=== PATIENT | female | born 1970 | race Caucasian/White ===

== ENCOUNTER 2020-07-19 15:11 | Outpatient (REF) | payer OTHER, SELFPAY ==
--- NOTE | 2020-07-19 | MM_ITS ---
EXAMINATION: MM SCREENING DIGITAL BREAST TOMOSYNTHESIS, BILATERAL CLINICAL INFORMATION: Screening. Asymptomatic. The lifetime risk of breast cancer based on the Tyrer-Cuzick Model is 12%. COMPARISON: Mammography: 07/14/2019, 06/07/2018, 12/11/2016 TECHNIQUE: Digital breast tomosynthesis is performed in both the craniocaudal and mediolateral oblique views along with computer-aided detection (CAD). Synthesized 2D images are generated from the tomosynthesis. FINDINGS: The breasts are heterogeneously dense, which may obscure small masses (ACR BI-RADS breast composition Category c). Parenchymal pattern is similar to prior studies. There is no interval significant mass or architectural abnormality or abnormal calcifications. Again, there are multiple bilateral round predominantly dermal calcifications. The axilla and skin contours are unremarkable. No significant changes. MM/MM tomosynthesis screening BI IMPRESSION: No significant changes from prior studies. ASSESSMENT: BI-RADS 2: Benign RECOMMENDATION: Routine annual mammography screening. This patient's information was entered into a reminder system with a target due date for their next mammogram.
== END 2020-07-19 15:12 | disposition home or self-care (01) ==
LOC: HO.MAMMO 15:11
PROVIDERS: PCP Internal Medicine; Visit Provider Internal Medicine
DX: Z12.31 Encounter for screening mammogram for malignant neoplasm of breast (principal)
CPT/HCPCS: 77063; 77067

== ENCOUNTER 2020-10-07 18:24 | Inpatient (IN) | payer OTHER, SELFPAY ==
--- NOTE | ~2020-10-07 | CT_ITS ---
EXAMINATION: CT ABDOMEN AND PELVIS WITHOUT CONTRAST CLINICAL INFORMATION: Vomiting, abdominal pain, multiple surgeries, rule out small bowel obstruction COMPARISON: 09/09/2007 TECHNIQUE: Oral contrast was administered. Multidetector volumetric imaging was performed from the superior aspect of the liver through the pubic symphysis. Sagittal and coronal reformatted images were obtained on the technologist's workstation. This CT examination was performed using dose optimization techniques as appropriate, variously including the following: *Automated exposure control *Adjustment of mA and/or kV according to patient size (this includes techniques or standardized protocols for targeted exams where dose is matched to indication/reason for exam; i.e. extremities or head) *Use of iterative reconstruction technique DLP: 524 mGy-cm FINDINGS: LUNG BASES: The visualized lung bases are unremarkable. LIVER, GALLBLADDER, AND BILIARY TREE: The liver is normal in size, shape, and attenuation. No focal hepatic lesion or biliary ductal dilatation is identified on this noncontrast exam. The gallbladder is unremarkable with no evidence of radiopaque gallstones, gallbladder wall thickening, or obvious pericholecystic inflammatory changes. PANCREAS: Unremarkable. SPLEEN: Unremarkable. ADRENAL GLANDS: Unremarkable. KIDNEYS AND URETERS: The kidneys are normal in size, shape, and attenuation. No hydronephrosis, hydroureter, or calculi seen. No perinephric stranding. BLADDER: Unremarkable. GASTROINTESTINAL TRACT: No evidence of bowel obstruction, and oral contrast is present within small and large bowel. Distal small bowel loops in the right lower quadrant are thickened leading to an enterocolonic anastomosis, suspicious for an enteritis. No free fluid or free air is seen. ABDOMINAL WALL: No significant hernia is appreciated. LYMPH NODES: Normal. VASCULAR: Unremarkable. PELVIC VISCERA: Unremarkable. OSSEOUS STRUCTURES: Unremarkable. CT/CT abdomen pelvis wo con IMPRESSION: Thick-walled distal small bowel loops in the right lower quadrant leading to an enterocolonic anastomosis, suspicious for an enteritis which may be infectious or inflammatory. No evidence of bowel obstruction.
[2020-10-07 18:31] VITALS: BP 119/91; PULSE 112; RESP 18; TEMP 37.1; O2SAT 98; BMI 24.7
[2020-10-07 21:26] LABS: MANUAL DIFF FLAG NO
[2020-10-07 21:28] LABS: Basophils Absolute Auto 0.1 X10*3/uL (0.0-0.2); Basophils Percent Auto 0.7 % (0-2); Eosinophils Absolute Auto 0.1 X10*3/uL (0.0-0.4); Eosinophils Percent Auto 1.9 % (0-4); Hematocrit 42.2 % (37-47); Hemoglobin 13.6 g/dl (12.0-16.0); Imm Gran Abs Auto 0.03 X10*3/uL (0.00-0.03); Imm Gran Pct Auto 0.4 % (0.0-0.4); Lymphocytes Percent Auto 15.3 % (20-40); Mean Corpuscular HGB Conc 32.2 g/dl (31.0-35.0); Mean Corpuscular Hemoglobin 26.4 pg (27.0-33.0); Mean Corpuscular Volume 81.9 fL (80-98); Mean Platelet Volume 9.6 fL (9.4-12.3); Monocytes Absolute Auto 0.6 X10*3/uL (0.1-1.2); Monocytes Percent Auto 9.5 % (2-11); Neutrophils Absolute Auto 4.9 X10*3/uL (2.0-8.3); Neutrophils Percent Auto 72.2 % (45-73); Platelet Count 307 X10*3/uL (160-400); Red Blood Count 5.15 X10*6/uL (4.20-5.50); Red Cell Distribution Width 12.3 % (11.0-16.0); White Blood Count 6.7 X10*3/uL (4.8-10.8)
[2020-10-07 21:53] LABS: Alanine Aminotransferase 28 U/L (0-31); Albumin Level 3.9 g/dL (3.5-5.0); Alkaline Phosphatase 245 U/L (39-117); Anion Gap 18 (12-20); Aspartate Amino Transferase 56 U/L (5-31); Bilirubin Direct 0.3 mg/dL (0.0-0.5); Bilirubin Total 0.5 mg/dL (0.0-1.0); Blood Urea Nitrogen 35 mg/dL (9-16); Calcium 8.9 mg/dL (8.4-10.2); Carbon Dioxide 27 mmol/L (22-29); Chloride 92 mmol/L (96-108); Creatinine Clr Calc Pharmacy 36.6; Estimated Glomerular Filt Rate 33; Glucose Random 82 mg/dL (60-115); Lipase 54 U/L (8-78); Potassium 3.8 mmol/L (3.3-5.1); Sodium 133 mmol/L (135-145); Total Protein 7.3 g/dL (6.5-8.0)
[2020-10-07 22:17] LABS: COVID-19 Test Negative (Negative)
--- NOTE | 2020-10-07 22:23 | PC.NURSE ---
DRE Dave at bedside for evaluation. Escorted to ED Bed 14 with staff. Ambulates with steady gait.
[2020-10-07 22:43] LABS: Glucose Urine UA NEG (NEG); Leukocyte Esterase Urine NEG (NEG); Nitrite Urine NEG (NEG); PH 5.5 (5.0-8.0); Urine Blood TRACE (NEG); Urine Ketones 5 MG/DL (NEG); Urine Protein NEG (NEG-TRACE)
[2020-10-07 22:44] LABS: Appearance Urine CLEAR; Color Urine YELLOW
--- NOTE | 2020-10-07 22:55 | ED_ITS ---
HPI - Nausea/Vomiting/Diarrhea General Chief complaint: Nausea/Vomiting/Diarrhea Stated complaint: MULTIPLE COMPLAINTS Time Seen by Provider: 10/07/20 22:05 Source: patient Mode of arrival: ambulatory Limitations: no limitations History of Present Illness HPI Narrative: 50-year-old female with past medical history of Crohn's status post partial resection, appendectomy here with complaints of abdominal pain. The patient tells me Wednesday evening she started to have right-sided abdominal discomfort and developed vomiting throughout the night. She tells me she had about 24 hours worth of vomiting with associated fever with a max temp of 104 degrees. Wednesday she was feeling improved with no additional vomiting episodes was still having some abdominal pain with low-grade fevers which has continued through today. The patient has chronic diarrhea normally 4 episodes per day. She has had 1-2 episodes per day since this started which is decreased per patient. Non-bloody diarrhea. No urinary symptoms, cough, shortness of breath. She is complaining of feeling generally weak and tired today with decreased p.o. intake Associated nausea: Yes Related Data Allergies Allergy/AdvReac Type Severity Reaction Status Date / Time kiwi [KIWI] Allergy Intermediate FACIAL Unverified 04/18/20 16:04 SWELLING TO LIPS dog dander [DOG] Allergy Mild HIVES TO Unverified 04/18/20 16:04 DOG SALIVA No Known Drug Allergies Allergy Unknown UNK Unverified 04/18/20 16:04 Review of Systems Review of Systems: Yes all other systems are reviewed and are negative Constitutional: Constitutional: Reports no additional constitutional complaints, Denies body ache(s), Denies chills, Reports fever(s), Denies headache(s) and Denies weakness Eyes: Eyes: Reports no additional eye complaints and Denies change in vision ENT: Reports system reviewed and no additional complaints, except as documented, Denies dizziness, Denies headache(s), Denies nasal congestion, Denies nasal discharge and Denies neck pain Cardiovascular: Cardiovascular: Reports no additional cardiovascular complaints, Denies chest pain, Denies leg edema and Denies dyspnea Respiratory: Respiratory: Reports no additional respiratory complaints, Denies cough and Denies dyspnea Gastrointestinal: Gastrointestinal: Reports no additional gastrointestinal complaints, Reports abdominal pain, Reports diarrhea, Reports nausea and Reports vomiting Genitourinary: Genitourinary: Reports no additional female genitourinary complaints and Denies urinary incontinence Musculoskeletal: Musculoskeletal: Reports no additional musculoskeletal complaints, Denies back pain, Denies arthralgias, Denies joint swelling, Denies neck pain, Denies numbness and Denies tingling Integumentary/Breasts: Skin/Breast: Reports system reviewed and no additional complaints, except as docu and Denies rash Neurologic: Reports system reviewed and no additional complaints, except as documented, Denies Abnormal speech present, Denies dizziness, Denies headache(s), Denies numbness, Denies tingling and Denies weakness PMFSH Past Medical History Attestation statement: The following information was validated with the patient. Source: old records reviewed and nursing notes reviewed Medical History (Updated 10/08/20 @ 01:37 by Dominga Dave NP) Crohn disease Surgical History (Updated 10/07/20 @ 22:56 by Dominga Dave NP) H/O partial resection of colon Hx of appendectomy Social History Social History Advance Directives: No Advance Directives Information Provided: Yes Physical Exam Vital Signs: Vital Signs: Last Vital Signs Temp 98.8 F 10/07/20 18:31 Pulse 112 H 10/07/20 18:31 Resp 18 10/07/20 18:31 BP 119/91 H 10/07/20 18:31 Pulse Ox 98 10/07/20 18:31 Body Mass Index 24.7 Const: General: cooperative, healthy appearing, comfortable and no acute distress Orientation/consciousness: patient oriented x3 Limitations: no limitations HENMT: Head: Yes normal to inspection Ears: hearing grossly normal bilaterally General nose exam: Normal external nose present Face and sinus: Yes normal facial exam Mouth: Normal oral and palatal mucosa present Throat: Yes posterior oropharynx normal Eyes: General: appearance normal, both eyes and all related structures Pupils: Equal, round and reactive pupils present Neck: Neck: Yes normal visual inspection Chest: Chest palpation & inspection: normal inspection of the chest Resp: Effort & Inspection: normal respiratory effort Auscultation: clear to auscultation bilaterally Cardio: Rate: regular rate Rhythm: regular rhythm Peripheral pulses: Peripheral pulses 2+ throughout GI: Inspection: Yes normal to inspection Palpation (GI): Soft to palpation and Tenderness to palpation present (GI) (mild tenderness in RLQ, no rebound or guarding ) Auscultation: normal bowel sounds Back/Spine/Pelvis: Thoracic/Lumbar Spine: thoracic and lumbar spine normal to inspection Skin: General skin exam: no rashes or lesions noted Neuro: General: patient oriented x3, no focal motor deficits and normal sensation to monofilament Cranial nerves: Yes Equal, round and reactive pupils present Cognition (Neuro): normal cognition Speech: No Abnormal speech present Gait exam (Neuro): Normal gait present Motor exam (neuro): 5/5 motor strength present throughout Extrem: General: Yes normal to inspection Course Course Course Narrative: 50-year-old female here with 3 days of right lower abdominal pain, vomiting and fever, now additionally with generalized weakness and de creased PO intake. Will need labs including blood cultures/lactic acid, UA, CT A/P . 0130-HALEIGH from dehydration. ?HUS with GI symptoms and double in creatinine however non reports of bloody diarrhea. NO fever here, no leukocytosis, lactic acid normal. CT shows thick-walled distal small bowel loops in the right lower quadrant leading to an enterocolonic anastomosis, suspicious for an enteritis which may be infectious or inflammatory. No evidence of bowel obstruction. At this time concern for viral gastroenteritis. Will admit for observation, trend of renal function. 0135-Discussed with Dr Newman who accepted admission. MDM - Nausea/Vomiting/Diarrhea MDM Narrative Medical decision making narrative: Viral syndrome, diverticulitis, bowel obstruction, ileus Medical Records Attestation: I reviewed the patient's medical records. Lab Data Attestation: I reviewed the patient's lab results. Result diagrams: 10/07/20 21:22 10/07/20 21:22 Labs: Lab Results 10/07/20 10/07/20 10/07/20 Range/Units 21:22 21:22 21:45 WBC 6.7 (4.8-10.8) X10*3/uL RBC 5.15 (4.20-5.50) X10*6/uL Hgb 13.6 (12.0-16.0) g/dl Hct 42.2 (37-47) % MCV 81.9 (80-98) fL MCH 26.4 L (27.0-33.0) pg MCHC 32.2 (31.0-35.0) g/dl RDW 12.3 (11.0-16.0) % Plt Count 307 (160-400) X10*3/uL MPV 9.6 (9.4-12.3) fL Immature Gran % (Auto) 0.4 (0.0-0.4) % Neut % (Auto) 72.2 (45-73) % Lymph % (Auto) 15.3 L (20-40) % [place] % (Auto) 9.5 (2-11) % Eos % (Auto) 1.9 (0-4) % Baso % (Auto) 0.7 (0-2) % Lymph # (Auto) 1.0 L (1.2-4.9) X10*3/uL [place] # (Auto) 0.6 (0.1-1.2) X10*3/uL Eos # (Auto) 0.1 (0.0-0.4) X10*3/uL Baso # (Auto) 0.1 (0.0-0.2) X10*3/uL Abs Immat Gran (auto) 0.03 (0.00-0.03) X10*3/uL Absolute Neuts (auto) 4.9 (2.0-8.3) X10*3/uL Absolute Nucleated RBC 0.000 (0.0-0.012) X10*3/uL Nucleated RBC % (auto) 0.0 (0.0-0.2) /100WBC Sodium 133 L (135-145) mmol/L Potassium 3.8 (3.3-5.1) mmol/L Chloride 92 L (96-108) mmol/L Carbon Dioxide 27 (22-29) mmol/L Anion Gap 18 (12-20) BUN 35 H (9-16) mg/dL Creatinine 1.65 H (0.5-1.4) mg/dL Estim Creat Clear Calc 36.6 Estimated GFR 33 Random Glucose 82 (60-115) mg/dL Lactic Acid (0.5-2.0) mmol/L Calcium 8.9 (8.4-10.2) mg/dL Total Bilirubin 0.5 (0.0-1.0) mg/dL Direct Bilirubin 0.3 (0.0-0.5) mg/dL AST 56 H (5-31) U/L ALT 28 (0-31) U/L Alkaline Phosphatase 245 H (39-117) U/L Total Protein 7.3 (6.5-8.0) g/dL Albumin 3.9 (3.5-5.0) g/dL Lipase 54 (8-78) U/L Urine Color Urine Appearance Urine pH (5.0-8.0) Ur Specific [place] (1.005-1.025) Urine Protein (NEG-TRACE) MG/DL Urine Glucose (UA) (NEG) MG/DL Urine Ketones (NEG) MG/DL Urine Blood (NEG) Urine Nitrite (NEG) Ur Leukocyte Esterase (NEG) Urine RBC (0) /HPF Urine WBC (0-4) /HPF Ur Squamous Epith Cells /LPF Ur Renal Epithelial Cell /LPF Urine Bacteria /LPF Epithelial Casts /LPF Urine Mucus /LPF COVID-19 ([facility]) Negative (Negative) COVID-19 Clin Com See Note 10/07/20 10/07/20 Range/Units 21:45 22:45 WBC (4.8-10.8) X10*3/uL RBC (4.20-5.50) X10*6/uL Hgb (12.0-16.0) g/dl Hct (37-47) % MCV (80-98) fL MCH (27.0-33.0) pg MCHC (31.0-35.0) g/dl RDW (11.0-16.0) % Plt Count (160-400) X10*3/uL MPV (9.4-12.3) fL Immature Gran % (Auto) (0.0-0.4) % Neut % (Auto) (45-73) % Lymph % (Auto) (20-40) % [place] % (Auto) (2-11) % Eos % (Auto) (0-4) % Baso % (Auto) (0-2) % Lymph # (Auto) (1.2-4.9) X10*3/uL [place] # (Auto) (0.1-1.2) X10*3/uL Eos # (Auto) (0.0-0.4) X10*3/uL Baso # (Auto) (0.0-0.2) X10*3/uL Abs Immat Gran (auto) (0.00-0.03) X10*3/uL Absolute Neuts (auto) (2.0-8.3) X10*3/uL Absolute Nucleated RBC (0.0-0.012) X10*3/uL Nucleated RBC % (auto) (0.0-0.2) /100WBC Sodium (135-145) mmol/L Potassium (3.3-5.1) mmol/L Chloride (96-108) mmol/L Carbon Dioxide (22-29) mmol/L Anion Gap (12-20) BUN (9-16) mg/dL Creatinine (0.5-1.4) mg/dL Estim Creat Clear Calc Estimated GFR Random Glucose (60-115) mg/dL Lactic Acid 0.8 (0.5-2.0) mmol/L Calcium (8.4-10.2) mg/dL Total Bilirubin (0.0-1.0) mg/dL Direct Bilirubin (0.0-0.5) mg/dL AST (5-31) U/L ALT (0-31) U/L Alkaline Phosphatase (39-117) U/L Total Protein (6.5-8.0) g/dL Albumin (3.5-5.0) g/dL Lipase (8-78) U/L Urine Color YELLOW Urine Appearance CLEAR Urine pH 5.5 (5.0-8.0) Ur Specific [place] 1.010 (1.005-1.025) Urine Protein NEG (NEG-TRACE) MG/DL Urine Glucose (UA) NEG (NEG) MG/DL Urine Ketones 5 (NEG) MG/DL Urine Blood TRACE (NEG) Urine Nitrite NEG (NEG) Ur Leukocyte Esterase NEG (NEG) Urine RBC 0-2 (0) /HPF Urine WBC 1-4 (0-4) /HPF Ur Squamous Epith Cells TRACE /LPF Ur Renal Epithelial Cell 2+ /LPF Urine Bacteria TRACE /LPF Epithelial Casts 5-9 /LPF Urine Mucus TRACE /LPF COVID-19 ([facility]) (Negative) COVID-19 Clin Com Imaging Data CT scan - abdomen: Attestation: I personally reviewed and interpreted this imaging study as daljit abraham: Radiologist's impression: Thick-walled distal small bowel loops in the right lower quadrant leading to an enterocolonic anastomosis, suspicious for an enteritis which may be infectious or inflammatory. No evidence of bowel obstruction Discharge Plan Discharge Clinical Impression: HALEIGH (acute kidney injury), Gastroenteritis and colitis, viral Patient Disposition: Admitted As Inpatient
[2020-10-07 22:56] LABS: Bacteria Urine TRACE /LPF; Mucus Urine TRACE /LPF; RBC Urine 0-2 /HPF (0); Renal Epithelial Cells Urine 2+ /LPF; Squamous Epithelial Cell Urine TRACE /LPF
[2020-10-07 23:08] LABS: Lactic Acid 0.8 mmol/L (0.5-2.0)
[2020-10-07] MEDS: 0.9 % Sodium Chloride 2,000 ML 999 ML IV (23:55)
[2020-10-08] MEDS: Diatrizoate Meglumine, Sodium 30 ML SOLUTION PO (00:57)
--- NOTE | 2020-10-08 02:31 | P.HPHOSP_ITS ---
History of Present Illness Date of Service: 10/08/20 Chief Complaint: Abdominal pain, fever This is a 50-year-old female with past medical history of Crohn's disease status post small-bowel resection who presents to the hospital with complaints of fever as well as abdominal pain and nausea vomiting that started on Wednesday. Patient reports that she had right lower quadrant abdominal pain that started on Wednesday, 8/10, nonradiating, associated with fever highest of 104 on Wednesday, nausea and vomiting with no diarrhea. Patient reports that her nausea and vomiting as well as abdominal pain have resolved somewhat but she still had fever persistently up until today and that is what brought her to the hospital. Due to this abdominal pain and nausea and vomiting she has not had a lot of oral intake. She denies any chest pain, no change in vision, no shortness of breath, no cough, no urinary symptoms and no lower extremity edema. No weakness in any of her extremities. She had bowel obstruction over 12 years ago for her Crohn's disease but had a flare about a year ago. She currently has no diarrhea. On arrival to the ED hemodynamically stable with a temp of 98.8?, heart rate of 112, respiratory rate of 18, blood pressure 119/91, satting 98% on room air Labs are significant for WBC count of 6.7, sodium of 133, chloride of 92, potassium 3.8, BUN of 35, creatinine of 1.65 with a baseline of 0.88, negative urine. Negative COVID, abdominal CT shows thick-walled distal bowel loops in the right lower quadrant leading to an enterocolonic anastomosis suspicious for an enteritis which may be infectious versus inflammatory. No evidence of bowel obstruction. Past medical history as below and confirmed with patient Review of Systems Review of Systems: Yes all other systems are reviewed and are negative [facility] Medical History (Updated 10/08/20 @ 02:44 by Delonte Newman MD) Crohn disease Hypertension Pertinent family history: Significant for coronary artery disease in brother, atrial fibrillation hypertension father Surgical History H/O partial resection of colon Hx of appendectomy Social History (Updated 10/08/20 @ 02:45 by Delonte Newman MD) Smoking Status: Never smoker Use of substances other than those prescribed or required for medical reasons: No Advance Directives: No Advance Directives Information Provided: Yes Meds Allergies Allergy/AdvReac Type Severity Reaction Status Date / Time kiwi [KIWI] Allergy Intermediate FACIAL Verified 10/08/20 02:29 SWELLING TO LIPS dog dander [DOG] Allergy Mild HIVES TO Verified 10/08/20 02:29 DOG SALIVA Active Medications: Current Medications Generic Name Dose Route Start Last Admin Trade Name Freq PRN Reason Stop Dose Admin Pharmacy Consult 1 each 10/08/20 01:31 Consult Rx Perform Med Rec MISCELLANE ONCE PRN Consult order Physical Exam Vital Signs and Narrative: Vital Signs: Last Vital Signs Temp 98.8 F 10/07/20 18:31 Pulse 112 H 10/07/20 18:31 Resp 18 10/07/20 18:31 BP 119/91 H 10/07/20 18:31 Pulse Ox 98 10/07/20 18:31 Body Mass Index 24.7 Const: General: cooperative and no acute distress Orientation/consciousness: patient oriented x3 Eyes: General: appearance normal, both eyes and all related structures Resp: Effort & Inspection: normal respiratory effort and able to speak in complete sentences Cardio: Rate: regular rate Rhythm: regular rhythm GI: Other: Mildly tender in the right lower quadrant with no rebound or guarding Palpation (GI): Soft to palpation Auscultation: normal bowel sounds Skin: General skin exam: no rashes or lesions noted Neuro: General: patient oriented x3 Cognition (Neuro): normal cognition Extrem: General: Yes normal to inspection and Yes no pedal edema Results Labs CBC and Chem 7: 10/07/20 21:22 10/07/20 21:22 Labs: Laboratory Results - last 24 hr 10/07/20 10/07/20 10/07/20 21:22 21:22 21:45 MCV 81.9 MCH 26.4 L MCHC 32.2 RDW 12.3 Plt Count 307 MPV 9.6 Immature Gran % (Auto) 0.4 Neut % (Auto) 72.2 Lymph % (Auto) 15.3 L [place] % (Auto) 9.5 Eos % (Auto) 1.9 Baso % (Auto) 0.7 Lymph # (Auto) 1.0 L [place] # (Auto) 0.6 Eos # (Auto) 0.1 Baso # (Auto) 0.1 Abs Immat Gran (auto) 0.03 Absolute Neuts (auto) 4.9 Absolute Nucleated RBC 0.000 Nucleated RBC % (auto) 0.0 Anion Gap 18 Estim Creat Clear Calc 36.6 Estimated GFR 33 Random Glucose 82 Lactic Acid Calcium 8.9 Total Bilirubin 0.5 Direct Bilirubin 0.3 AST 56 H ALT 28 Alkaline Phosphatase 245 H Total Protein 7.3 Albumin 3.9 Lipase 54 Urine Color Urine Appearance Urine pH Ur Specific [place] Urine Protein Urine Glucose (UA) Urine Ketones Urine Blood Urine Nitrite Ur Leukocyte Esterase Urine RBC Urine WBC Ur Squamous Epith Cells Ur Renal Epithelial Cell Urine Bacteria Epithelial Casts Urine Mucus COVID-19 ([facility]) Negative COVID-19 Clin Com See Note 10/07/20 10/07/20 21:45 22:45 MCV MCH MCHC RDW Plt Count MPV Immature Gran % (Auto) Neut % (Auto) Lymph % (Auto) [place] % (Auto) Eos % (Auto) Baso % (Auto) Lymph # (Auto) [place] # (Auto) Eos # (Auto) Baso # (Auto) Abs Immat Gran (auto) Absolute Neuts (auto) Absolute Nucleated RBC Nucleated RBC % (auto) Anion Gap Estim Creat Clear Calc Estimated GFR Random Glucose Lactic Acid 0.8 Calcium Total Bilirubin Direct Bilirubin AST ALT Alkaline Phosphatase Total Protein Albumin Lipase Urine Color YELLOW Urine Appearance CLEAR Urine pH 5.5 Ur Specific [place] 1.010 Urine Protein NEG Urine Glucose (UA) NEG Urine Ketones 5 Urine Blood TRACE Urine Nitrite NEG Ur Leukocyte Esterase NEG Urine RBC 0-2 Urine WBC 1-4 Ur Squamous Epith Cells TRACE Ur Renal Epithelial Cell 2+ Urine Bacteria TRACE Epithelial Casts 5-9 Urine Mucus TRACE COVID-19 ([facility]) COVID-19 Clin Com Imaging Radiologist's Impressions: Impressions Abdomen/Pelvis CT 10/08/20 00:15 IMPRESSION: Thick-walled distal small bowel loops in the right lower quadrant leading to an enterocolonic anastomosis, suspicious for an enteritis which may be infectious or inflammatory. No evidence of bowel obstruction. Assessment and Plan (1) HALEIGH (acute kidney injury): Status: Acute (2) Gastroenteritis and colitis, viral: Status: Acute This is a 50-year-old female with history of Crohn's disease presents to the hospital with abdominal pain, fever found to have enteritis on CT abdomen # fever - most likely secondary to enteritis - viral versus bacterial - given her fever, tachycardia, will start her on IV antibiotics - no evidence of HUS. as platelets within normal and her HALEIGH is most likely seco ndary to poor oral intake - follow cultures # HALEIGH - most likely secondary to poor oral intake - start IV fluids - follow BMP # hypertension - stable DVT prophylaxis: Lovenox
[2020-10-08 03:02] VITALS: BP 116/73; PULSE 88; RESP 16; TEMP 37.3; O2SAT 97
[2020-10-08 03:03] LABS: Anion Gap 12 (12-20); Carbon Dioxide 28 mmol/L (22-29); Chloride 99 mmol/L (96-108); Potassium 3.6 mmol/L (3.3-5.1); Sodium 135 mmol/L (135-145)
[2020-10-08 03:04] LABS: Blood Urea Nitrogen 27 mg/dL (9-16); Calcium 7.7 mg/dL (8.4-10.2); Creatinine Clr Calc Pharmacy 53.4; Estimated Glomerular Filt Rate 51; Glucose Random 81 mg/dL (60-115)
--- NOTE | 2020-10-08 06:26 | PC.NURSE ---
This RN contacted Med/Surg unit to give RN to RN report. No answer. quality assurance nurse (Светлана) and Nursing Anatomy And Physiology Instructor ([place]) aware. Plan to re-attempt giving report shortly. Plan to admit to room 350.
--- NOTE | 2020-10-08 06:37 | PC.NURSE ---
RN to RN report given to ALEXUS Moura on med/surg. Preparing for transfer/admission to room 350.
[2020-10-08 07:15] VITALS: BP 118/72; PULSE 86; RESP 16; TEMP 36.3; O2SAT 98
[2020-10-08] MEDS: Enoxaparin Sodium 40 MG/0.4 ML SYRINGE SUBCUT (07:51)
[2020-10-08] MEDS: levoFLOXacin/D5W 750 MG/150 ML PIGGYBACK 100 MG IV (07:51)
[2020-10-08] MEDS: 0.9 % Sodium Chloride 1,000 ML 100 ML IVCONT ×2 (07:51→19:58)
--- NOTE | 2020-10-08 09:01 | HO.PM.IMPN ---
Subjective Subjective Date of Service: 10/08/20 Interval History: seen and examined this AM reports abdominal symptoms improved, no further vomiting and nausea improved, no BM since admission, passing flatus ROS General - no fevers or chills Cardiovascular - no chest pain Respiratory - no shortness of breath or cough Abdominal- +n, - vomiting, - diarrhea Physical Exam Vital Signs: Vital Signs: Last Vital Signs Temp 97.3 F 10/08/20 07:15 Pulse 86 10/08/20 07:15 Resp 16 10/08/20 07:15 BP 118/72 10/08/20 07:15 Pulse Ox 98 10/08/20 07:15 Body Mass Index 24.7 Const: General: cooperative and no acute distress Orientation/consciousness: patient oriented x3 Eyes: General: appearance normal, both eyes and all related structures Resp: Effort & Inspection: normal respiratory effort and able to speak in complete sentences Cardio: Rate: regular rate Rhythm: regular rhythm GI: Other: Mildly tender in the right lower quadrant with no rebound or guarding Palpation (GI): Soft to palpation Auscultation: normal bowel sounds Skin: General skin exam: no rashes or lesions noted Neuro: General: patient oriented x3 Cognition (Neuro): normal cognition Extrem: General: Yes normal to inspection and Yes no pedal edema Objective Data Current Medications Generic Name Dose Route Start Last Admin Trade Name Freq PRN Reason Stop Dose Admin Acetaminophen 650 mg 10/08/20 07:13 Acetaminophen 325 Mg Tablet PO Q6H PRN Pain, Mild (Pain Scale 1-3) Enoxaparin Sodium 40 mg 10/08/20 08:00 10/08/20 07:51 Enoxaparin Sodium 40 Mg/0.4 Ml Syringe SUBCUT 40 mg Q24H COURTNEY Administration Sodium Chloride 1,000 mls @ 100 mls/hr 10/08/20 07:13 10/08/20 07:51 Ns IVCONT 100 mls/hr .Q10H COURTNEY Administration Levofloxacin 750 mg in 150 mls @ 100 mls/hr 10/08/20 08:00 10/08/20 07:51 Levaquin IV 100 mls/hr Q24H COURTNEY Administration Ondansetron HCl 4 mg 10/08/20 07:13 Ondansetron Hcl 4 Mg/2 Ml Vial IVPUSH Q8H PRN Nausea and Vomiting Pharmacy Consult 1 each 10/08/20 01:31 Consult Rx Perform Med Rec MISCELLANE ONCE PRN Consult order Sodium Chloride 3 ml 10/08/20 08:00 10/08/20 07:54 0.9 % Sodium Chloride Flush 3 Ml Syringe IVFLUSH Not Given QSHIFT [facility] Labs CBC & Chem 7: 10/07/20 21:22 10/08/20 02:37 Assessment and Plan (1) HALEIGH (acute kidney injury): Status: Acute (2) Gastroenteritis and colitis, viral: Status: Acute Assessment and Plan: This is a 50-year-old female with history of Crohn's disease presents to the hospital with abdominal pain, fever found to have enteritis on CT abdomen 1. Enteritis vs crohn's flare continue empiric Levaquin for now - day 2 stool studies if further diarrhea consult GI, hold off in steroids until evaluated start clear liquid diet 2. HALEIGH SCr baseline around .9, presented with 1.65 secondary to diarrhea and poor oral intake improving towards baseline, SCr down to 1.13 now continue IV hydration until diet improved 3. History of crohn's disease per patient report doesn't appear to be on any baseline meds GI evaluation as above DVT ppx - Lovenox Full Code Dispo: anticipate home without services once symptoms improved -- anticipate next 24-48 hours.
[2020-10-08 11:34] VITALS: BP 127/73; PULSE 89; RESP 16; TEMP 36.8; O2SAT 100
--- NOTE | 2020-10-08 12:23 | P.CNGI_ITS ---
History of Present Illness Data of Consult Service Date: 10/08/20 Primary Care Provider: Peterson Salinas MD HPI Reason for consult: Fever, abdominal pain, Hx of Crohn's disease 50 yo female who came to the ER with abdominal pain, hx of high fevers to 104 and diarrhea. Patient has had chronic diarrhea ever since her surgery in 2007 for small bowel disease with mesenteric abscess that ended up with emergent resection of diseased bowel. (Histologically, it was Crohn's disease with stricture and fistula into a mesenteric abscess.) Patient was seen about 1 year ago but was without followup. Review of Systems Review of Systems: Yes all other systems are reviewed and are negative Cardiovascular: Cardiovascular: Denies chest pain, Denies chest pain with activity, Denies palpitations and Reports dyspnea Respiratory: Respiratory: Denies cough, Reports dyspnea and Denies wheezing Gastrointestinal: Gastrointestinal: Reports tenesmus, Denies constipation, Reports GI cramping and Reports diarrhea Genitourinary: Genitourinary: Reports amenorrhea Comments: Patient is now post menopausal by hx Psychiatric: Psychiatric: Denies depression and Denies irritability Endocrine: Endocrine: Denies palpitations Allergic/Immunologic: Allergic/Immunologic: Denies wheezing PMFSH Past Medical History Medical History (Updated 10/08/20 @ 12:31 by Coleen See MD) Crohn disease Hypertension Cognitive capacity: full Functional capacity: independent ambulation Surgical History Surgical History (Updated 10/08/20 @ 12:25 by Coleen See MD) H/O partial resection of colon Hx of appendectomy Social History Social History (Updated 10/08/20 @ 02:45 by Delonte Newman MD) Household Members: Family and Children Housing: House Do you presently have visiting nurse or other home services: No Alcohol intake: never Smoking Status: Never smoker Smoked in Last 30 Days: No Use of substances other than those prescribed or required for medical reasons: No Have you been hit, kicked, punched, or otherwise hurt by someone within the past year? If so, by whom?: No Do you feel safe in your current relationship?: Yes Is there a partner from a previous relationship who is making you feel unsafe now?: No Are you made to feel afraid or neglected: No Advance Directives: No Advance Directives Information Provided: Yes Do you have thoughts of harming others: None Do you have a plan to hurt others: No Plan Recently lost weight without trying: No service: No Current occupational status: employed Travel History History of recent travel: No Meds Allergies Allergy/AdvReac Type Severity Reaction Status Date / Time kiwi [KIWI] Allergy Intermediate FACIAL Verified 10/08/20 06:25 SWELLING TO LIPS dog dander [DOG] Allergy Mild HIVES TO Verified 10/08/20 06:25 DOG SALIVA Active Medications: Current Medications Generic Name Dose Route Start Last Admin Trade Name Freq PRN Reason Stop Dose Admin Acetaminophen 650 mg 10/08/20 07:13 Acetaminophen 325 Mg Tablet PO Q6H PRN Pain, Mild (Pain Scale 1-3) Enoxaparin Sodium 40 mg 10/08/20 08:00 10/08/20 07:51 Enoxaparin Sodium 40 Mg/0.4 Ml Syringe SUBCUT 40 mg Q24H COURTNEY Administration Sodium Chloride 1,000 mls @ 100 mls/hr 10/08/20 07:13 10/08/20 07:51 Ns IVCONT 100 mls/hr .Q10H COURTNEY Administration Levofloxacin 750 mg in 150 mls @ 100 mls/hr 10/08/20 08:00 10/08/20 09:35 Levaquin IV Infused Q24H COURTNEY Infusion Ondansetron HCl 4 mg 10/08/20 07:13 Ondansetron Hcl 4 Mg/2 Ml Vial IVPUSH Q8H PRN Nausea and Vomiting Pharmacy Consult 1 each 10/08/20 01:31 Consult Rx Perform Med Rec MISCELLANE ONCE PRN Consult order Sodium Chloride 3 ml 10/08/20 08:00 10/08/20 07:54 0.9 % Sodium Chloride Flush 3 Ml Syringe IVFLUSH Not Given QSHIFT [facility] Home Medications Medication Instructions Recorded Confirmed Last Taken Type acetaminophen [Tylenol 8 Hour] 650 mg PO Q12H PRN 10/08/20 10/08/20 10/07/20 History ibuprofen [Advil] 200 mg PO Q6H PRN 10/08/20 10/08/20 10/07/20 History Physical Exam Vital Signs: Vital Signs: Last Vital Signs Temp 98.3 F 10/08/20 11:34 Pulse 89 10/08/20 11:34 Resp 16 10/08/20 11:34 BP 127/73 10/08/20 11:34 Pulse Ox 100 10/08/20 11:34 Body Mass Index 24.7 Const: General: cooperative, comfortable and no acute distress Or ientation/consciousness: patient oriented x3 Resp: Effort & Inspection: normal respiratory effort, able to speak in complete sentences, no respiratory distress and not tachypneic Auscultation: clear to auscultation bilaterally GI: Palpation (GI): Soft to palpation, nontender and no masses Skin: General skin exam: no rashes or lesions noted, no jaundice and normal turgor Lesions: no lesions Neuro: General: patient oriented x3 Extrem: General: Yes normal to inspection and No pedal edema Results Labs CBC & Chem 7: 10/07/20 21:22 10/08/20 02:37 Labs: Short CBC 10/07/20 Range/Units 21:22 WBC 6.7 (4.8-10.8) X10*3/uL Hgb 13.6 (12.0-16.0) g/dl Hct 42.2 (37-47) % Plt Count 307 (160-400) X10*3/uL BMP 10/07/20 10/08/20 21:22 02:37 Sodium 133 L 135 Potassium 3.8 3.6 Chloride 92 L 99 Carbon Dioxide 27 28 BUN 35 H 27 H Creatinine 1.65 H 1.13 Calcium 8.9 7.7 L D Liver Function 10/07/20 Range/Units 21:22 Total Bilirubin 0.5 (0.0-1.0) mg/dL Direct Bilirubin 0.3 (0.0-0.5) mg/dL AST 56 H (5-31) U/L ALT 28 (0-31) U/L Alkaline Phosphatase 245 H (39-117) U/L Albumin 3.9 (3.5-5.0) g/dL Urine 10/07/20 Range/Units 21:45 Urine Color YELLOW Urine Appearance CLEAR Urine pH 5.5 (5.0-8.0) Ur Specific Page 1.010 (1.005-1.025) Urine Protein NEG (NEG-TRACE) MG/DL Urine Glucose (UA) NEG (NEG) MG/DL CT done in the ER: GASTROINTESTINAL TRACT: No evidence of bowel obstruction, and oral contrast is present within small and large bowel. Distal small bowel loops in the right lower quadrant are thickened leading to an enterocolonic anastomosis, suspicious for an enteritis. No free fluid or free air is seen. Assessment and Plan (1) Crohn disease: Status: Acute Patient has not been shown to have active or recurrent Crohn's disease @ least up until now. Will continue to evaluate. (2) Gastroenteritis and colitis, viral: Status: Acute By the time patient had come in, the high fevers had stopped. The CT suggested a possible acute enteritis.. Covid Testing was negative. When seen a year ago, the bx done on colonoscopy showed some acute inflamation--no chronic disease was appreciated @ that time. She had been her usual self until Last Wednesday --10/04: She did not have her usual amount of of diarrhea. She had pain and fever. Will check CRP. See how she tolerates diet. Consider further testing depending on persistence of symptoms. Try to advance diet.
--- NOTE | 2020-10-08 13:25 | MHC.CM.PN ---
EMR REVIEWED, PT ADMITTED W/ENTEROCOLITIS AND HALEIGH, CM MET WITH PT WHO IS ALERT AND ORIENTED X 4, PT REPORTS SHE LIVES WITH HER SON AND DAUGHTER, PT IS INDEPENDENT WITH ALL CARE, HAS NO DME OR HOME SERVICES, PT DOES NOT ANTICIPATE NEED FOR SERVICES AFTER D/C, PT VERIFIED PC, PHARMACY AND DENIES HAVING A HCP, PT IS INTERESTED AND CM WILL COMPLETE WITH PT PRIOR TO D/C. PCP: [facility]VA DISCHARGE PLAN: HOME W/NO SERVICES, WILL TRANSPORT SELF.
[2020-10-08 14:19] LABS: C Reactive Protein 10.94 mg/dL (< or = 0.50)
[2020-10-08 15:10] VITALS: BP 134/86; PULSE 80; RESP 14; TEMP 36.7; O2SAT 99
[2020-10-08 19:16] VITALS: BP 137/79; PULSE 88; RESP 14; TEMP 36.4; O2SAT 98
[2020-10-08 21:38] LABS: Lactate Dehydrogenase 165 U/L (122-220)
[2020-10-08 23:23] VITALS: BP 127/83; PULSE 76; RESP 16; TEMP 36.1; O2SAT 98
[2020-10-09 04:00] VITALS: BP 105/66; PULSE 71; RESP 18; TEMP 36; O2SAT 100
[2020-10-09] MEDS: 0.9 % Sodium Chloride 1,000 ML 100 ML IVCONT (06:03)
[2020-10-09 06:13] LABS: MANUAL DIFF FLAG NO
[2020-10-09 06:28] LABS: Basophils Percent Auto 0.7 % (0-2); Eosinophils Absolute Auto 0.2 X10*3/uL (0.0-0.4); Eosinophils Percent Auto 3.7 % (0-4); Hematocrit 35.5 % (37-47); Hemoglobin 11.1 g/dl (12.0-16.0); Imm Gran Abs Auto 0.01 X10*3/uL (0.00-0.03); Imm Gran Pct Auto 0.2 % (0.0-0.4); Lymphocytes Absolute Auto 0.9 X10*3/uL (1.2-4.9); Lymphocytes Percent Auto 20.3 % (20-40); Mean Corpuscular HGB Conc 31.3 g/dl (31.0-35.0); Mean Corpuscular Hemoglobin 26.2 pg (27.0-33.0); Mean Corpuscular Volume 83.9 fL (80-98); Mean Platelet Volume 9.5 fL (9.4-12.3); Monocytes Absolute Auto 0.7 X10*3/uL (0.1-1.2); Monocytes Percent Auto 15.3 % (2-11); Neutrophils Absolute Auto 2.8 X10*3/uL (2.0-8.3); Neutrophils Percent Auto 59.8 % (45-73); Platelet Count 251 X10*3/uL (160-400); Red Blood Count 4.23 X10*6/uL (4.20-5.50); White Blood Count 4.6 X10*3/uL (4.8-10.8)
[2020-10-09 07:04] LABS: Anion Gap 11 (12-20); Blood Urea Nitrogen 8 mg/dL (9-16); Calcium 7.9 mg/dL (8.4-10.2); Carbon Dioxide 31 mmol/L (22-29); Chloride 102 mmol/L (96-108); Creatinine Clr Calc Pharmacy 74.5; Estimated Glomerular Filt Rate > 60; Glucose Random 82 mg/dL (60-115); Potassium 3.8 mmol/L (3.3-5.1); Sodium 140 mmol/L (135-145)
[2020-10-09 07:20] VITALS: BP 127/88; PULSE 83; RESP 16; TEMP 36.8; O2SAT 100
[2020-10-09] MEDS: levoFLOXacin/D5W 750 MG/150 ML PIGGYBACK 100 MG IV (08:39)
[2020-10-09] MEDS: 0.9 % Sodium Chloride Flush 3 ML SYRINGE IVFLUSH (08:39)
[2020-10-09] MEDS: Enoxaparin Sodium 40 MG/0.4 ML SYRINGE SUBCUT (08:45)
--- NOTE | 2020-10-09 09:17 | MHC.CM.PN ---
CM MET WITH PT TO COMPLETE HCP, PT DESIGNATED HER DAUGHTER DANIEL ARMENDARIZ HER HEALTH CARE AGENT, NO ALTERNATE CHOSEN. PT GIVEN ORIGINAL AND 3 COPIES, COPY UPLOADED TO [employer] AND PLACED IN CHART. DANIEL ARMENADRIZ [phone]
--- NOTE | 2020-10-09 10:56 | MHC.CM.PN ---
Addendum entered by Shelly Dietrich RN 10/09/20 11:03: CLARIFICATION PT TRANSPORTING SELF, CAR IN HOSPITAL PARKING LOT. Original Note: PT DISCHARGING TODAY HOME SELF-CARE, FAMILY TO TRANSPORT. PT DISCHARGING ON ABX LEOFLOXACIN 500MG AND HAS THREE MORE DOSES TO TAKE. NURSING AND HOSPITALIST AWARE OF PT'S DISPOSITION.
--- NOTE | 2020-10-09 10:58 | P.DS_ITS ---
DS: Providers Provider Date of Service: 10/09/20 Date of admission: 10/08/20 01:56 Primary care physician: Peterson Salinas MD Consults: 10/08/20 09:02 Consult to Gastroenterology Routine Consulting Provider: Coleen See Reason for consultation: enterocoliits - ? crohns flare vs infectious DS: Diagnosis Discharge Diagnosis (1) Crohn disease: Status: Acute (2) Gastroenteritis and colitis, viral: Status: Acute (3) HALEIGH (acute kidney injury): Status: Acute DS: Medications Discharge Medications Home Medications: Home Medications Medication Instructions Recorded Confirmed acetaminophen [Tylenol 8 Hour] 650 mg PO Q12H PRN 10/08/20 10/08/20 ibuprofen [Advil] 200 mg PO Q6H PRN 10/08/20 10/08/20 DS: Summary Hospital Course Hospital Course: From H&P: This is a 50-year-old female with past medical history of Crohn's disease status post small-bowel resection who presents to the hospital with complaints of fever as well as abdominal pain and nausea vomiting that started on Wednesday. Patient reports that she had right lower quadrant abdominal pain that started on Wednesday, 03/11, nonradiating, associated with fever highest of 104 on Wednesday, nausea and vomiting with no diarrhea. Patient reports that her nausea and vomiting as well as abdominal pain have resolved somewhat but she still had fever persistently up until today and that is what brought her to the hospital. Due to this abdominal pain and nausea and vomiting she has not had a lot of oral intake. She denies any chest pain, no change in vision, no shortness of breath, no cough, no urinary symptoms and no lower extremity edema. No weakness in any of her extremities. She had bowel obstruction over 12 years ago for her Crohn's disease but had a flare about a year ago. She currently has no diarrhea. Patient was admitted to medical/surgical floor with a working diagnosis of enteritis. She was treated with IV fluid, IV levofloxacin. Her abdominal pain, nausea and vomiting resolved. She had no fever during hospitalization. She was seen consultation by GI and no further workup is recommended at this time. Her diet was advanced and she is currently stable for discharge. She will be discharged home with oral Levofloxacin. She can follow up with GI as an outpatient. Status at Discharge Functional status at discharge: independent ambulation Time Spent with Patient Time attestation: Total time spent providing and/or coordinating discharge services: Discharge coordination time: Greater than 30 minutes Physical Exam Vital Signs: Vital Signs: Last Vital Signs Temp 98.2 F 10/09/20 07:20 Pulse 83 10/09/20 07:20 Resp 16 10/09/20 07:20 BP 127/88 10/09/20 07:20 Pulse Ox 100 10/09/20 07:20 Body Mass Index 24.7 Const: Nutritional Appearance: well nourished Orientation/consciousness: patient oriented x3 HENMT: Head: Yes normocephalic and Yes atraumatic Eyes: Sclerae: sclerae normal Chest: Chest palpation & inspection: normal inspection of the chest Resp: Effort & Inspection: normal respiratory effort and no respiratory distress Cardio: Rate: regular rate Rhythm: regular rhythm GI: Palpation (GI): Soft to palpation and nontender Skin: General skin exam: no rashes or lesions noted Neuro: General: patient oriented x3 Cranial nerves: Yes CN's II-XII intact bilaterally and Yes Bilaterally intact EOM present Extrem: General: Yes normal to inspection DS: Data Data Completed and Pending Labs on day of discharge: Laboratory Results - last 24 hr 10/08/20 10/09/20 10/09/20 02:37 06:05 06:05 WBC 4.6 L RBC 4.23 Hgb 11.1 L Hct 35.5 L MCV 83.9 MCH 26.2 L MCHC 31.3 RDW 12.0 Plt Count 251 MPV 9.5 Immature Gran % (Auto) 0.2 Neut % (Auto) 59.8 Lymph % (Auto) 20.3 Turner % (Auto) 15.3 H Eos % (Auto) 3.7 Baso % (Auto) 0.7 Lymph # (Auto) 0.9 L Turner # (Auto) 0.7 Eos # (Auto) 0.2 Baso # (Auto) 0.0 Abs Immat Gran (auto) 0.01 Absolute Neuts (auto) 2.8 Absolute Nucleated RBC 0.000 Nucleated RBC % (auto) 0.0 Sodium 140 Potassium 3.8 Chloride 102 Carbon Dioxide 31 H Anion Gap 11 L BUN 8 L D Creatinine 0.81 Estim Creat Clear Calc 74.5 Estimated GFR > 60 Random Glucose 82 Calcium 7.9 L Lactate Dehydrogenase 165 C-Reactive Protein 10.94 H Preliminary micro results at discharge 10/07/20 22:45 Blood Culture - Preliminary Blood - Venous No growth after 24 hours. 10/07/20 22:45 Blood Culture - Preliminary Blood - Venous No growth after 24 hours. Discharge Plan Discharge Patient Disposition: Home, Self-Care Referrals: Peterson Salinas MD [Primary Care Provider] - Discharge Medications: New levofloxacin 500 mg tablet 500 mg PO DAILY Qty: 3 RF: 0 Continued acetaminophen [Tylenol 8 Hour] 650 mg Tablet Extended Release 650 mg PO Q12H PRN (Reason: Pain) RF: 0 ibuprofen [Advil] 200 mg Tablet 200 mg PO Q6H PRN (Reason: Pain) RF: 0 Discharge Orders: Discharge Order (Routine); Ordered 10/09/20 Ordered By: Shonna Hinojosa Activity on Discharge: As tolerated Stand Alone Forms: Patient Portal Discharge page Care Plan Goals: stay healthy and out of the hospital Health Concerns: See below Plan of Treatment: You were admitted for abdominal pain and fever, likely related to enteritis. Please finish course of antibiotics. Your kidney function was elevated on admission, but has now returned to normal range. Discharge Date/Time: 10/09/20 13:09
[2020-10-09 12:00] VITALS: RESP 16
== END 2020-10-09 13:09 | disposition home or self-care (01) | DRG 249 ==
LOC: HO.ED 10-08 01:37 → HO.EDOVER 10-08 02:11 → HO.S3 10-08 04:51
PROVIDERS: Internal Medicine Gastroenterology; Nurse Practitioner Family; Admitting Provider Internal Medicine; Emergency Provider Internal Medicine; PCP Internal Medicine; Visit Provider Family Medicine
DX: A08.4 Viral intestinal infection, unspecified (principal); N17.9 Acute kidney failure, unspecified; I10 Essential (primary) hypertension; K50.90 Crohn's disease, unspecified, without complications; Z20.822 Contact with and (suspected) exposure to COVID-19; Z79.1 Long term (current) use of non-steroidal anti-inflammatories (NSAID); Z79.899 Other long term (current) drug therapy
CPT/HCPCS: 36415; 74176; 80048; 80076; 81001; 83605; 83615; 83690; 85025; 86140; 87040; 87045; 87046; 87635; 96361; 96365; 99285; J1650; J1956

== ENCOUNTER 2021-07-10 15:04 | Outpatient (REF) | payer OTHER, SELFPAY ==
[2021-07-10 16:00] LABS: Basophils Absolute Auto 0.1 X10*3/uL (0.0-0.2); Basophils Percent Auto 1.2 % (0-2); Eosinophils Absolute Auto 0.2 X10*3/uL (0.0-0.4); Eosinophils Percent Auto 3.4 % (0-4); Hematocrit 40.5 % (37.0-47.0); Hemoglobin 13.1 g/dl (12.0-16.0); Imm Gran Abs Auto 0.02 X10*3/uL (0.00-0.03); Imm Gran Pct Auto 0.3 % (0.0-0.4); Lymphocytes Absolute Auto 1.5 X10*3/uL (1.2-4.9); Lymphocytes Percent Auto 21.6 % (20-40); MANUAL DIFF FLAG NO; Mean Corpuscular HGB Conc 32.3 g/dl (31.0-35.0); Mean Corpuscular Hemoglobin 27.4 pg (27.0-33.0); Mean Corpuscular Volume 84.7 fL (80.0-98.0); Mean Platelet Volume 9.6 fL (9.4-12.3); Monocytes Absolute Auto 0.6 X10*3/uL (0.1-1.2); Monocytes Percent Auto 8.2 % (2-11); Neutrophils Absolute Auto 4.5 x10*3/uL (2.0-8.3); Neutrophils Percent Auto 65.3 % (45-73); Platelet Count 394 X10*3/uL (160-400); Red Blood Count 4.78 X10*6/uL (4.20-5.50); Red Cell Distribution Width 12.3 % (11.0-16.0); White Blood Count 6.9 X10*3/uL (4.8-10.8)
[2021-07-10 16:18] LABS: C Reactive Protein 0.27 mg/dL (< or = 0.50)
[2021-07-10 16:42] LABS: Free T4 (Free Thyroxine) 1.04 ng/dL (0.71-1.85); Thyroid Stimulating Hormone 1.21 uIU/mL (0.32-4.0)
[2021-07-10 17:12] LABS: Vitamin B12 164 pg/mL (200-900)
== END 2021-07-10 15:05 | disposition home or self-care (01) ==
LOC: HO.LAB 15:04
PROVIDERS: PCP Internal Medicine; Visit Provider Internal Medicine
DX: Z00.00 Encounter for general adult medical examination without abnormal findings (principal); E53.8 Deficiency of other specified B group vitamins; Z87.19 Personal history of other diseases of the digestive system
CPT/HCPCS: 36415; 82306; 82607; 84439; 84443; 85025; 86140

== ENCOUNTER 2021-07-12 08:35 | Outpatient (REF) | payer OTHER, SELFPAY ==
[2021-07-12 11:06] LABS: Alanine Aminotransferase 13 U/L (0-31); Albumin Level 3.7 g/dL (3.5-5.0); Alkaline Phosphatase 76 U/L (39-117); Anion Gap 11 (12-20); Aspartate Amino Transferase 16 U/L (5-31); Bilirubin Total 0.5 mg/dL (0.0-1.0); Blood Urea Nitrogen 7 mg/dL (9-16); Calcium 8.8 mg/dL (8.4-10.2); Carbon Dioxide 31 mmol/L (22-29); Chloride 106 mmol/L (96-108); Cholesterol 159 mg/dL; Estimated Glomerular Filt Rate > 60; Glucose Fasting 80 mg/dL (60-99); HDL Cholesterol 63 mg/dL; LDL Cholesterol Calculated 75 mg/dl; Potassium 3.1 mmol/L (3.3-5.1); Sodium 145 mmol/L (135-145); Total Protein 6.6 g/dL (6.5-8.0); Triglycerides 105 mg/dL
== END 2021-07-12 08:36 | disposition home or self-care (01) ==
LOC: HO.LAB 08:35
PROVIDERS: PCP Internal Medicine; Visit Provider Internal Medicine
DX: Z00.00 Encounter for general adult medical examination without abnormal findings (principal); E53.8 Deficiency of other specified B group vitamins; Z87.19 Personal history of other diseases of the digestive system
CPT/HCPCS: 36415; 80053; 80061

== ENCOUNTER 2021-09-30 16:41 | Outpatient (REF) | payer OTHER, SELFPAY ==
[2021-09-30 17:17] LABS: MANUAL DIFF FLAG NO
[2021-09-30 18:00] LABS: Basophils Absolute Auto 0.1 X10*3/uL (0.0-0.2); Eosinophils Absolute Auto 0.3 X10*3/uL (0.0-0.4); Eosinophils Percent Auto 3.2 % (0-4); Hematocrit 40.2 % (37.0-47.0); Hemoglobin 12.8 g/dl (12.0-16.0); Imm Gran Abs Auto 0.02 X10*3/uL (0.00-0.03); Imm Gran Pct Auto 0.3 % (0.0-0.4); Lymphocytes Absolute Auto 1.6 X10*3/uL (1.2-4.9); Lymphocytes Percent Auto 21.1 % (20-40); Mean Corpuscular HGB Conc 31.8 g/dl (31.0-35.0); Mean Corpuscular Hemoglobin 27.4 pg (27.0-33.0); Mean Corpuscular Volume 85.9 fL (80.0-98.0); Mean Platelet Volume 9.6 fL (9.4-12.3); Monocytes Absolute Auto 0.5 X10*3/uL (0.1-1.2); Neutrophils Absolute Auto 5.2 x10*3/uL (2.0-8.3); Neutrophils Percent Auto 67.4 % (45-73); Platelet Count 379 X10*3/uL (160-400); Red Blood Count 4.68 X10*6/uL (4.20-5.50); Red Cell Distribution Width 12.4 % (11.0-16.0); White Blood Count 7.7 X10*3/uL (4.8-10.8)
[2021-09-30 18:20] LABS: C Reactive Protein 0.32 mg/dL (< or = 0.50)
[2021-09-30 18:46] LABS: Vitamin D 25-OH Total 25.5 ng/mL (>30)
[2021-10-01 09:21] LABS: Thyroid Peroxidase Antibodies 4 IU/mL (<9)
== END 2021-09-30 16:42 | disposition home or self-care (01) ==
LOC: HO.LAB 16:41
PROVIDERS: PCP Internal Medicine; Visit Provider Internal Medicine
DX: E55.9 Vitamin D deficiency, unspecified (principal); L65.9 Nonscarring hair loss, unspecified; Z87.19 Personal history of other diseases of the digestive system
CPT/HCPCS: 36415; 82306; 85025; 86140; 86376

== ENCOUNTER 2022-01-23 15:27 | Outpatient (REF) | payer OTHER, SELFPAY ==
[2022-01-23 15:39] LABS: MANUAL DIFF FLAG NO
[2022-01-23 15:50] LABS: Basophils Absolute Auto 0.1 X10*3/uL (0.0-0.2); Basophils Percent Auto 1.4 % (0-2); Eosinophils Absolute Auto 0.3 X10*3/uL (0.0-0.4); Eosinophils Percent Auto 4.7 % (0-4); Hematocrit 38.2 % (37.0-47.0); Hemoglobin 12.1 g/dl (12.0-16.0); Imm Gran Abs Auto 0.02 X10*3/uL (0.00-0.03); Imm Gran Pct Auto 0.3 % (0.0-0.4); Lymphocytes Absolute Auto 1.7 X10*3/uL (1.2-4.9); Lymphocytes Percent Auto 26.4 % (20-40); Mean Corpuscular HGB Conc 31.7 g/dl (31.0-35.0); Mean Corpuscular Hemoglobin 26.9 pg (27.0-33.0); Mean Corpuscular Volume 85.1 fL (80.0-98.0); Mean Platelet Volume 9.2 fL (9.4-12.3); Monocytes Absolute Auto 0.5 X10*3/uL (0.1-1.2); Monocytes Percent Auto 8.2 % (2-11); Neutrophils Absolute Auto 3.9 x10*3/uL (2.0-8.3); Platelet Count 375 X10*3/uL (160-400); Red Blood Count 4.49 X10*6/uL (4.20-5.50); Red Cell Distribution Width 12.6 % (11.0-16.0); White Blood Count 6.6 X10*3/uL (4.8-10.8)
[2022-01-23 16:05] LABS: Anion Gap 11 (12-20); Blood Urea Nitrogen 10 mg/dL (9-16); Carbon Dioxide 29 mmol/L (22-29); Chloride 103 mmol/L (96-108); Estimated Glomerular Filt Rate > 60; Glucose Random 95 mg/dL (60-115); Iron 43 mcg/dL (30-160); Percent Iron Saturation 12 % (15-50); Potassium 3.5 mmol/L (3.3-5.1); Sodium 139 mmol/L (135-145); Total Iron Binding Capacity 357 mcg/dL (228-428); Unsaturated Iron Binding 314 ug/dL
[2022-01-23 16:33] LABS: Vitamin B12 239 pg/mL (200-900)
== END 2022-01-23 15:28 | disposition home or self-care (01) ==
LOC: HO.LAB 15:27
PROVIDERS: PCP Internal Medicine; Visit Provider Internal Medicine
DX: Z00.00 Encounter for general adult medical examination without abnormal findings (principal); E55.9 Vitamin D deficiency, unspecified; E53.8 Deficiency of other specified B group vitamins; Z86.79 Personal history of other diseases of the circulatory system
CPT/HCPCS: 36415; 80048; 82306; 82607; 83540; 85025

== ENCOUNTER 2024-03-31 09:07 | Outpatient (REF) | payer OTHER, SELFPAY ==
--- NOTE | ~2024-03-31 | MM_ITS ---
EXAMINATION: MM SCREENING DIGITAL BREAST TOMOSYNTHESIS, BILATERAL CLINICAL INFORMATION: Screening. Asymptomatic. COMPARISON: Mammography: Comparison is made with available priors TECHNIQUE: Digital breast tomosynthesis is performed in both the craniocaudal and mediolateral oblique views along with computer-aided detection (CAD). Synthesized 2D images are generated from the tomosynthesis. FINDINGS: The breasts are heterogeneously dense, which may obscure small masses (ACR BI-RADS breast composition Category c). There are no significant masses, abnormal calcifications, or other abnormalities. MM/MM tomosynthesis screening BI IMPRESSION: No mammographic evidence of malignancy. ASSESSMENT: BI-RADS BI-RADS 1 - Negative RECOMMENDATION: Routine annual mammography screening. 1 year F/U This examination should not preclude the clinical evaluation of a suspicious palpable abnormality. This patient's information was entered into a reminder system with a target due date for their next mammogram. Electronically signed by: Liat Alex DO 04/21/2024 10:22 PM EDT
== END 2024-03-31 09:08 | disposition home or self-care (01) ==
LOC: HO.MAMMO 09:07
PROVIDERS: PCP Internal Medicine; Visit Provider Internal Medicine
DX: Z12.31 Encounter for screening mammogram for malignant neoplasm of breast (principal)
CPT/HCPCS: 77063; 77067

== ENCOUNTER → 2024-03-31 09:30 | Outpatient (BNV) | payer OTHER, SELFPAY | PROVIDERS: PCP Internal Medicine; Visit Provider Internal Medicine | DX: Z12.31 Encounter for screening mammogram for malignant neoplasm of breast (principal) | CPT/HCPCS: 77063; 77067 ==

== ENCOUNTER 2024-05-13 09:29 | Outpatient (REF) | payer OTHER, SELFPAY ==
[2024-05-13 11:08] LABS: MANUAL DIFF FLAG NO
[2024-05-13 11:12] LABS: Basophils Absolute Auto 0.1 X10*3/uL (0.0-0.2); Basophils Percent Auto 1.7 % (0-2); Eosinophils Absolute Auto 0.2 X10*3/uL (0.0-0.4); Eosinophils Percent Auto 2.8 % (0-4); Hematocrit 33.6 % (37.0-47.0); Hemoglobin 10.4 g/dl (12.0-16.0); Imm Gran Abs Auto 0.02 X10*3/uL (0.00-0.03); Imm Gran Pct Auto 0.3 % (0.0-0.4); Lymphocytes Percent Auto 17.9 % (20-40); Mean Corpuscular Hemoglobin 23.4 pg (27.0-33.0); Mean Corpuscular Volume 75.7 fL (80.0-98.0); Mean Platelet Volume 9.1 fL (9.4-12.3); Monocytes Absolute Auto 0.4 X10*3/uL (0.1-1.2); Monocytes Percent Auto 7.5 % (2-11); Neutrophils Percent Auto 69.8 % (45-73); Platelet Count 421 X10*3/uL (160-400); Red Blood Count 4.44 X10*6/uL (4.20-5.50); Red Cell Distribution Width 14.1 % (11.0-16.0); White Blood Count 5.7 X10*3/uL (4.8-10.8)
[2024-05-13 11:35] LABS: Alanine Aminotransferase 10 U/L (0-31); Albumin Level 3.5 g/dL (3.5-5.0); Alkaline Phosphatase 72 U/L (39-117); Anion Gap 12 (12-20); Aspartate Amino Transferase 15 U/L (5-31); Bilirubin Total 0.4 mg/dL (0.0-1.0); Blood Urea Nitrogen 9 mg/dL (9-16); C Reactive Protein 0.29 mg/dL (< or = 0.50); Calcium 8.8 mg/dL (8.4-10.2); Carbon Dioxide 31 mmol/L (22-29); Chloride 102 mmol/L (96-108); Cholesterol 154 mg/dL (<200); Estimated Glomerular Filt Rate > 60; Glucose Fasting 83 mg/dL (60-99); HDL Cholesterol 69 mg/dL (>40); LDL Cholesterol Calculated 69 mg/dL (<100); Potassium 3.3 mmol/L (3.3-5.1); Sodium 142 mmol/L (135-145); Total Protein 6.5 g/dL (6.5-8.0); Triglycerides 80 mg/dL (<150)
[2024-05-13 11:51] LABS: Vitamin B12 220 pg/mL (200-900)
[2024-05-13 11:52] LABS: Thyroid Stimulating Hormone 1.16 uIU/mL (0.32-4.0); Vitamin D 25-OH Total 24.9 ng/mL (>30)
[2024-05-13 11:59] LABS: Erythrocyte Sedimentation Rate 10 MM/HR (0-20)
== END 2024-05-13 09:30 | disposition home or self-care (01) ==
LOC: HO.HMGCLDS 09:29
PROVIDERS: PCP Internal Medicine; Visit Provider Internal Medicine
DX: E55.9 Vitamin D deficiency, unspecified (principal); E53.9 Vitamin B deficiency, unspecified
CPT/HCPCS: 36415; 80053; 80061; 82306; 82607; 84443; 85025; 85652; 86140

== ENCOUNTER → 2024-05-18 07:56 | Outpatient (REF) | payer OTHER, SELFPAY ==
--- NOTE | ~2024-05-18 | NM_ITS ---
EXERCISE MYOCARDIAL PERFUSION STUDY INDICATION: Shortness of breath, dizziness TECHNIQUE: The patient was brought in for an exercise perfusion study on 05/18/2024. Patient performed exercise as per Isaiah protocol and was injected 25 mCi of sestamibi once target heart rate was achieved. Images were obtained using the SPECT gamma camera interlaced with the gating device. Images were obtained in supine position. Resting perfusion study was performed on 05/22/2024. Patient was administered 25 mCi of sestamibi intravenously at rest. Images were then obtained in supine position. Total DLP 33 mGy-cm. Images were processed with the software and compared side to side in short axis, horizontal long axis and vertical long axis views. FINDINGS: Raw aquisition reviewed. The stress perfusion study showed decreased tracer uptake in the distal part of anteroseptal wall. With CT attenuation correction, there is improvement suggestive of soft tissue attenuation artifact. The gated study shows normal LV systolic function with calculated LVEF of > 70%. LV cavity is normal in size. The gated study shows normal wall thickening and contraction of segments. Resting study shows no significant perfusion abnormality. Gating at rest reveals normal wall motion with ejection fraction at 70%. The findings are consistent with no clear reversible or fixed perfusion abnormality. NM/NM link perf SPECT rest & str IMPRESSION: 1. Myocardial perfusion imaging study shows probably normal myocardial perfusion. 2. Gated LVEF is 74% during stress and 70% during rest. 3. Transient ischemic dilatation not present. EKG component of the test reported separately. Electronically signed by: Lawrence Weston MD 05/22/2024 04:51 PM EDT RP
--- NOTE | 2024-05-18 08:00 | CA_ITS ---
Acquisition Time: 2024-05-18 07:54:14 Total Exercise Time: 00:06:00 Test Indications: Dyspnea DIZZINESS Medications: NONE Protocol: HEIDY Max HR: 155 BPM 93% of Pred: 166 BPM Max BP: 168/078 mmHG Max Work Load: 7.0 METS Exercise stress test with exercise 6 min of Heidy protocol, achieving 92% MPHR, without anginal symptoms, without arrythmia, with normotensive response to exercise, with EKG changes that meet critria for ischemia: horizontal to upsloping ST depression inferiorly, V3-V6 with gradual improvement in recovery. Nuclear images pending, Test reviewed with Dr Weston. Referred By: Peterson Salinas Overread By: ADAM ARMENDARIZ
== END ==
LOC: HO.CARD 07:56
PROVIDERS: PCP Internal Medicine; Visit Provider Internal Medicine
DX: R06.09 Other forms of dyspnea (principal); R42 Dizziness and giddiness
CPT/HCPCS: 78452; 93017; A9500

== ENCOUNTER → 2024-05-18 08:00 | Outpatient (BNV) | payer OTHER, SELFPAY | PROVIDERS: PCP Internal Medicine; Visit Provider Nurse Practitioner Family | DX: R06.00 Dyspnea, unspecified (principal) | CPT/HCPCS: 78452; 93016; 93018 ==

== ENCOUNTER 2025-04-06 09:29 | Outpatient (REF) | payer OTHER, SELFPAY ==
--- NOTE | ~2025-04-06 | MM_ITS ---
EXAMINATION: MM SCREENING DIGITAL BREAST TOMOSYNTHESIS, BILATERAL CLINICAL INFORMATION: Screening. Asymptomatic. COMPARISON: Mammography: Comparison is made with available priors TECHNIQUE: Digital breast mammography with tomosynthesis is performed in both the craniocaudal and mediolateral oblique views along with computer-aided detection (CAD). FINDINGS: The breasts are heterogeneously dense, which may obscure small masses (ACR BI-RADS breast composition Category c). There are no significant masses, abnormal calcifications, or other abnormalities. MM/MM tomosynthesis screening BI IMPRESSION: No mammographic evidence of malignancy. ASSESSMENT: BI-RADS BI-RADS 1 - Negative RECOMMENDATION: Routine annual mammography screening. 1 year F/U This examination should not preclude the clinical evaluation of a suspicious palpable abnormality. This patient's information was entered into a reminder system with a target due date for their next mammogram. Electronically signed by: Liat Alex DO 04/09/2025 05:31 PM EDT
--- OUTSIDE RECORDS SUMMARY | 2025-04-06 10:11 | XMS_ITS | Patient Health Record ---
Author Organization [facility] Address [address] [place] [id number] Care Team Providers Care Assistant Chief Engineer Name Role Phone Clemente Lagunas Unavailable [phone] Reason For Referral No Information Plan Of Treatment No Information
== END 2025-04-06 09:30 | disposition home or self-care (01) ==
LOC: HO.MAMMO 09:29
PROVIDERS: PCP Internal Medicine; Visit Provider Internal Medicine
DX: Z12.31 Encounter for screening mammogram for malignant neoplasm of breast (principal)
CPT/HCPCS: 77063; 77067

== ENCOUNTER → 2025-04-06 09:30 | Outpatient (BNV) | payer OTHER, SELFPAY | PROVIDERS: PCP Internal Medicine; Visit Provider Internal Medicine | DX: Z12.31 Encounter for screening mammogram for malignant neoplasm of breast (principal) | CPT/HCPCS: 77063; 77067 ==

== ENCOUNTER 2025-05-15 14:31 | Outpatient (REF) | payer OTHER, SELFPAY ==
--- NOTE | ~2025-05-15 | XR_ITS ---
EXAMINATION: XR CHEST CLINICAL INFORMATION: J06.9 - Acute upper respiratory infection, unspecified COMPARISON: None available. TECHNIQUE: 2 views of the chest were obtained. FINDINGS: No significant abnormality is noted involving the heart, lungs, mediastinum, bony thorax or soft tissues. XR/XR chest 2V IMPRESSION: No acute disease Electronically signed by: Kirk Centeno MD 05/15/2025 03:36 PM EDT
[2025-05-15 15:25] LABS: MANUAL DIFF FLAG NO
[2025-05-15 15:59] LABS: Hematocrit 34.3 % (37.0-47.0); Hemoglobin 10.5 g/dl (12.0-16.0); Imm Gran Abs Auto 0.01 X10*3/uL (0.00-0.03); Imm Gran Pct Auto 0.1 % (0.0-0.4); Lymphocytes Absolute Auto 1.5 X10*3/uL (1.2-4.9); Mean Corpuscular HGB Conc 30.6 g/dl (31.0-35.0); Mean Corpuscular Hemoglobin 22.8 pg (27.0-33.0); Mean Corpuscular Volume 74.6 fL (80.0-98.0); NRBC Abs Auto 0.000 X10*3/uL (0.0-0.012); NRBC Pct Auto 0.0 /100WBC (0.0-0.2); Platelet Count 477 X10*3/uL (160-400); Red Blood Count 4.60 X10*6/uL (4.20-5.50); White Blood Count 7.0 X10*3/uL (4.8-10.8)
[2025-05-15 16:38] LABS: Alanine Aminotransferase 15 U/L (0-31); Albumin Level 4.1 g/dL (3.5-5.0); Anion Gap 13 (12-20); Aspartate Amino Transferase 20 U/L (5-31); Blood Urea Nitrogen 10 mg/dL (9-16); Calcium 9.1 mg/dL (8.4-10.2); Carbon Dioxide 26 mmol/L (22-29); Chloride 105 mmol/L (96-108); Cholesterol 174 mg/dL (<200); Estimated Glomerular Filt Rate > 60; HDL Cholesterol 77 mg/dL (>40); Potassium 3.5 mmol/L (3.3-5.1); Sodium 140 mmol/L (135-145); Total Protein 7.2 g/dL (6.5-8.0); Triglycerides 97 mg/dL (<150)
[2025-05-15 16:40] LABS: Alkaline Phosphatase 81 U/L (39-117)
[2025-05-15 16:41] LABS: Erythrocyte Sedimentation Rate 16 MM/HR (0-20)
[2025-05-16 03:15] LABS: Syphilis Screen Nonreactive (Nonreactive)
[2025-05-16 03:35] LABS: HBS Num1 0.11 mIU/mL (0-7.99); HBc Num1 0.04 S/CO (0.00-0.79); HBsAGNum1 0.25 S/CO (0.00-0.99); HIV Num 1 0.15 S/CO (0.00-0.99); Hepatitis A Antibody IgM 0.15 Index (0-0.79); Hepatitis B Surface Antigen Negative (Negative); ~HepC Num1 0.09 S/CO (0.00-0.79); ~Hepatitis A Antibody IgM Nonreactive (Nonreactive); ~Hepatitis B Surface Antibody NONREACTIVE (Nonreactive); ~Hepatitis C Antibody Nonreactive (Nonreactive)
== END 2025-05-15 14:32 | disposition home or self-care (01) ==
LOC: HO.LAB 14:31
PROVIDERS: PCP Internal Medicine; Visit Provider Student in an Organized Health Care Education/Training Program
DX: Z76.89 Persons encountering health services in other specified circumstances (principal); J06.9 Acute upper respiratory infection, unspecified; I10 Essential (primary) hypertension; K50.818 Crohn's disease of both small and large intestine with other complication; J02.9 Acute pharyngitis, unspecified
CPT/HCPCS: 36415; 71046; 80053; 80061; 82306; 83036; 84443; 85025; 85652; 86141; 86704; 86706; 86709; 86780; 86803; 87340; 87389; 96127; 99202

== ENCOUNTER 2025-05-15 14:31 | Outpatient (AMB) | payer OTHER, SELFPAY ==
--- NOTE | 2025-05-15 14:09 | MHC.PC.OV ---
Vital Signs 05/15/25 14:36 Height 5 ft 1.69 in Weight 132 lb BMI 24.4 BP 156/76 H Blood Pressure Location Lt brachial Position Sitting Respiration 18 Pulse 85 Pulse Source Pulse Oximeter Temp 98.1 F Temp Source Temporal Artery Scan Pulse Oximetry (%) 98 Oxygen Delivery Method Room Air Intake Visit Reasons: Respiratory complaints Office Automation Clerk Required: No Accompanied by: Self / Same As Patient Allergies kiwi (KIWI) Allergy (Intermediate, Verified 05/15/25 14:09) FACIAL SWELLING TO LIPS dog dander (DOG) Allergy (Mild, Verified 05/15/25 14:09) HIVES TO DOG SALIVA Tobacco use date assessed: 05/15/25 Dental Screening Dental Screen Date: 05/15/25 Did you have a dental visit in the last 12 months?: Yes Did you have a dental problem in the last 6 months where you did not have access to dental care?: No Was dental information given to patient?: Patient has dentist HPI HPI Comments History of Present Illness Details The patient is a 55-year-old female presenting with complaints of sore throat, chest discomfort, and a potential viral infection. Her symptoms began last Wednesday when her throat started hurting, progressing to a sensation of chest heaviness and irritations in a couple of spots on her tongue. She experienced difficulty in getting deep breaths, sometimes leading to a dry cough. The patient reports occasional feelings of being really hot but does not recall any fevers or chills. She denied any known exposure to sick individuals or any recent swabs for COVID-19. She described lethargy the prior week, sleeping long hours on multiple days, notably going to bed as early as 6:30 PM. Medical History: - Crohn's disease, status post bowel resection (no current treatment) - Past use of Lisinopril for hypertension - Recent mammogram negative for malignancy - Anemia (noted in past blood work) - Former smoker (quit in 2003) Surgical History: - Bowel resection involving part of the cecum, large and small intestine, and colon for Crohn's disease Medications: - Vitamin D3 - Vitamin B12 Family History: - Mother and maternal aunt: Breast cancer - Maternal grandfather: Pancreatic cancer - Brother: Coronary artery disease (stent placement) - Father: Atrial fibrillation - No family history of diabetes or other heart disease Diagnostic Results: - Mammogram conducted on 9/5, results negative Social History: - 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 - Former smoker; quit smoking in 2003 after approximately 20 years of smoking - Social alcohol use; consumes two to three drinks twice a month - No use of illicit drugs - Past the hypertension treatment with Lisinopril due to high blood pressure episodes - Allergies to kiwi and specific dog dander [facility] Medical History (Updated 05/15/25 @ 15:00 by Greg Sena MD) URI (upper respiratory infection) Hypertension Crohn disease Surgical History (Updated 10/08/20 @ 12:25 by Coleen See MD) H/O partial resection of colon Hx of appendectomy Social History (Updated 10/08/20 @ 02:45 by Delonte Newman MD) Household Members: Family and Children Housing: Apartment Do you presently have visiting nurse or other home services: No Alcohol intake: never Patient Tobacco Use Status: Former Tobacco user Tobacco use type: Cigarette Years Smoked: 16 years-quit 2002 e-Cigarette/Vaping Use: Never Used service: No Current occupational status: employed Current occupation: [employer] Questionnaire PHQ-9 Over the last 2 weeks, how often have you been bothered by any of the following problems? 1. Little interest or pleasure in doing things: not at all 2. Feeling down, depressed, or hopeless: not at all 3. Trouble falling or staying asleep, or sleeping too much: not at all 4. Feeling tired or having little energy: not at all 5. Poor appetite or overeating: not at all 6. Feeling bad about yourself - or that you are a failure or have let yourself or your family down: not at all 7. Trouble concentrating on things, such as reading the newspaper or watching television: not at all 8. Moving or speaking so slowly that other people could have noticed. Or the opposite - being so fidgety or restless that you have been moving around a lot more than usual: not at all 9. Thoughts that you would be better off or of hurting yourself in some way: not at all Total score: 0 Depression Screening Interpretation: Negative Depression Screening Done: Yes 99820 - PHQ-9 Billing: Yes Source: Developed by Drs. Clemente Nagel, Chichi Patel, Amilcar Arnold and colleagues, with an educational roseline from [employer]. Thrive Questionnaire Date Thrive assessed: 05/15/25 I am a: Patient What is your living situation today?: I have a steady place to live Within the past 12 months, did the food you bought not last and you didn't have the money to get more?: Never true Within the past 12 months, did you worry whether your food would run out before you got money to buy more?: Never true Do you have trouble paying for medicines?: No Do you have trouble getting transportation to medical appointments?: No Do you have trouble paying your heating and electricity bill?: No Do you have trouble taking care of your child, family member or friend?: No Do you have trouble with day-to-day activities such as bathing, preparing meals, shopping, managing finances, etc.?: No Are you currently unemployed and looking for a job?: No Are you interested in more education?: No THRIVE Score: 0 AUDIT C Alcohol Use Questionnaire (AUDIT-C) 1. How often do you have a drink containing alcohol?: 2-4 times a month 2. How many drinks containing alcohol do you have on a typical day when you are drinking?: 3 or 4 3. How often do you have six or more drinks on one occasion?: Never Total Score: 3 Score Reviewed/Action Taken: Yes SADIE-7 AMB Questionnaire SADIE-7 Date SADIE - 7 assessed: 05/15/25 Feeling nervous, anxious, or on edge: 0 = Not at all Not being able to stop or control worryin = Not at all Worrying too much about different things: 0 = Not at all Trouble relaxin = Not at all Being so restless that it is hard to sit still: 0 = Not at all Becoming easily annoyed or irritable: 0 = Not at all Feeling afraid as if something awful might happen: 0 = Not at all Total SADIE-7 score (0-4 normal; 5-9 mild; 10-14 moderate; 15-21 severe): 0 Source: Developed by Drs. Clemente Nagel, Chichi Patel, Amilcar Arnold and colleagues, with an educational roseline from [employer]. SADIE-7 Assessment Billing SADIE-7 Assessment Tool: SADIE-7 Assessment 95868 Review of Systems Const Details: - Respiratory: Reports sore throat with chest heaviness and dry cough; denies difficulty breathing, noted sensitivities in airways - General: Denies fevers and chills, reports feeling occasionally hot - ENT: Reports sore throat and tongue irritations; denies runny nose or ear involvement - Musculoskeletal: Denies joint pain - Gastrointestinal: Reports chronic loose stools, diarrhea, and hemorrhoids - Dermatologic: Denies skin lesions - Psychological: Denies depression or anxiety All systems reviewed & are unremarkable except as reviewed in HPI and above Physical exam (Primary Care) Vital Signs: Last Vital Signs Temp 98.1 F 05/15/25 14:36 Pulse 85 05/15/25 14:36 Resp 18 05/15/25 14:36 BP 156/76 H 05/15/25 14:36 Pulse Ox 98 05/15/25 14:36 Oxygen Delivery Method Room Air 05/15/25 14:36 BMI result Body Mass Index 24.4 Tobacco/Smoking Status: Tobacco use Status Tobacco use date assessed 05/15/25 05/15/25 14:11 Patient Tobacco Use Status Former Tobacco user 05/15/25 14:40 Tobacco use type Cigarette 05/15/25 14:40 e-Cigarette/Vaping Use Never Used 05/15/25 14:40 Depression Screening Interpretation: Negative Const Other: General: Alert and oriented, Well nourished, No acute distress. Eye: Pupils are equal, round and reactive to light, Intact accommodation, Extraocular movements are intact, Normal conjunctiva, Vision unchanged. HENT: Normocephalic, Atraumatic, Tympanic membranes are clear, Normal hearing, Oral mucosa is moist, No pharyngeal erythema, Ear canals patent. Respiratory: Lungs CTA bilaterally, No wheeze, Respirations are non-labored, but patient reports feeling of heaviness in the chest and dry cough. Cardiovascular: Regular rate, Regular rhythm, S1 auscultated, S2 auscultated, No murmur, Good pulses equal in all extremities, Normal peripheral perfusion, No edema. Blood pressure noted to be in the 150s, which is high. Gastrointestinal: Soft, Non-tender, Non-distended, Normal bowel sounds, No organomegaly. Patient reports history of Crohn's disease with bowel resection involving part of the large intestine, a large part of the small intestine, and a little of the colon. Experiences loose stools and diarrhea. Musculoskeletal: Normal range of motion, Normal strength, No tenderness, No swelling, No deformity, Normal gait. Integumentary: Warm, Dry, [place], Intact. Neurologic: Alert, Oriented, Normal sensory, Normal motor function, No focal defects, Cranial Nerves II-XII are grossly intact, Normal deep tendon reflexes. Psychiatric: Cooperative, Appropriate mood & affect, Normal judgment. No depression or anxiety reported. Coding Level of Care Code New Pt Level 4 (62934) Diagnoses Primary hypertension I10 Hypertension type: primary hypertension Crohn's disease of both small and large intestine with other complication K50.818 Gastrointestinal tract location: small and large intestine Digestive disease complication type: other complication Acute pharyngitis, unspecified etiology J02.9 URI type: acute pharyngitis Pharyngitis/tonsillitis etiology: unspecified etiology Additional Codes PHQ-9 - 32382 - PHQ-9 Billing: Yes ([id number]) SADIE-7 Assessment Billing - SADIE-7 Assessment Tool: SADIE-7 Assessment 20382 ([id number]) Assessment & Plan Assessment & Plan (1) Hypertension: Comment: - Lisinopril 5 mg prescribed, monitor blood pressures regularly - Lifestyle modifications advised, primarily reducing salt intake Code(s): I10 - Essential (primary) hypertension Category: Medical Qualifiers: Hypertension type: primary hypertension Qualified Code(s): I10 - Essential (primary) hypertension (2) Crohn disease: Comment: - Referral to GI specialist for reassessment - Blood work for ESR to check inflammation levels Code(s): K50.90 - Crohn's disease, unspecified, without complications Category: Medical Qualifiers: Gastrointestinal tract location: small and large intestine Digestive disease complication type: other complication Qualified Code(s): K50.818 - Crohn's disease of both small and large intestine with other complication (3) URI (upper respiratory infection): Comment: - Likely a viral pathogen responsible; monitor symptoms for resolution - Chest x-ray & COVID Swab ordered Code(s): J06.9 - Acute upper respiratory infection, unspecified Category: Medical Qualifiers: URI type: acute pharyngitis Pharyngitis/tonsillitis etiology: unspecified etiology Qualified Code(s): J02.9 - Acute pharyngitis, unspecified Plan: Health Maintenance: - Regular follow-up on hypertension management and medication adjustments - Full blood panel to monitor anemia, vitamin levels, and other potential abnormalities - Ensure mammograms are conducted annually Patient was informed and verbally consented to the use of an ambient scribe for clinic note documentation during this visit. Plan I discussed with the patient the likelihood of her experiencing a viral respiratory tract infection given the constellation of symptoms and current symptom prevalence. I emphasized the importance of monitoring her symptoms, and if no improvement occurs, possible diagnostic imaging and a revised treatment plan may be necessary. I explained the potential need for a referral to gastroenterology to reassess her Crohn's disease, given her past surgical history and ongoing symptomatic manifestations. Detailed information on hypertension management was provided, reiterating the need for medication adherence and lifestyle changes. I highlighted the need for comprehensive blood work to reassess anemia and other potential issues. Orders: Orders Complete Blood Count Auto Diff Today Z76.89 - Persons encountering health services in other specified circumstances Hemoglobin A1c Today Z76.89 - Persons encountering health services in other specified circumstances Hepatitis A,B,C Profile Today Z76.89 - Persons encountering health services in other specified circumstances Lipid Panel Today Z76.89 - Persons encountering health services in other specified circumstances Syphilis Screen Today Z76.89 - Persons encountering health services in other specified circumstances Erythrocyte Sedimentation Rate Today Z76.89 - Persons encountering health services in other specified circumstances XR chest 2V Today J06.9 - Acute upper respiratory infection, unspecified Comprehensive Met. Panel Today Z76.89 - Persons encountering health services in other specified circumstances HIV Ab/Ag Today Z76.89 - Persons encountering health services in other specified circumstances TSH reflex Free T4 Today Z76.89 - Persons encountering health services in other specified circumstances Vitamin D 25-OH Total Today Z76.89 - Persons encountering health services in other specified circumstances CRP High Sensitivity Today Z76.89 - Persons encountering health services in other specified circumstances SARS-CoV2/FLU/RSV Today J06.9 - Acute upper respiratory infection, unspecified Referrals Gastroenterology Referral K50.90 - Crohn's disease, unspecified, without complications Medications: New lisinopril 5 mg PO DAILY 90 tabs 2RF Discontinued levofloxacin Discontinued Reason: Patient Completed Course 500 mg PO DAILY 3 tabs 0RF Patient Instructions: - Monitor your symptoms, and if no improvement or worsening occurs, contact my office. - Follow up with a GI specialist for Crohn's disease management. - Start on Lisinopril 5 mg and monitor your blood pressure regularly at home. - Reduce your salt intake as part of dietary changes. - Visit the lab for blood work as discussed.
[2025-05-15 14:36] VITALS: BP 156/76; PULSE 85; RESP 18; TEMP 36.7; O2SAT 98; BMI 24.4
--- OUTSIDE RECORDS SUMMARY | 2025-05-15 17:25 | XMS_ITS | Patient Health Record ---
Author Organization [facility] Address [address] [place] [id number] Care Team Providers Care Artist Color Separation Name Role Phone Clemente Lagunas Unavailable [phone] Reason For Referral No Information Plan Of Treatment No Information
== END 2025-05-15 15:01 | disposition home or self-care (01) ==
PROVIDERS: PCP Student in an Organized Health Care Education/Training Program; Visit Provider Student in an Organized Health Care Education/Training Program
DX: I10 Essential (primary) hypertension (principal); K50.818 Crohn's disease of both small and large intestine with other complication; J02.9 Acute pharyngitis, unspecified

== ENCOUNTER → 2025-05-15 15:24 | Outpatient (BNV) | payer OTHER, SELFPAY | PROVIDERS: PCP Internal Medicine; Visit Provider Radiology Diagnostic Radiology | DX: J06.9 Acute upper respiratory infection, unspecified (principal) | CPT/HCPCS: 71046 ==